=== PATIENT | male | born 1945 | race Caucasian/White ===

== ENCOUNTER → 2025-04-12 11:22 | Outpatient (REF) | payer OTHER, SELFPAY | LOC: HWRCS 11:22 | PROVIDERS: ATTENDING PHYSICIAN Internal Medicine; FAMILY PHYSICIAN Family Medicine | DX: I25.10 Atherosclerotic heart disease of native coronary artery without angina pectoris (principal); I10 Essential (primary) hypertension; I25.2 Old myocardial infarction; I48.0 Paroxysmal atrial fibrillation | CPT/HCPCS: 93306 ==